=== PATIENT | male | born 1940 | race Caucasian/White ===

== ENCOUNTER 2021-07-07 06:14 | Day surgery (SDC) | payer OTHER, MEDICARE ==
[2021-07-01 15:34] VITALS: BMI 25.1
[2021-07-07] MEDS ORDERED: PROPOFOL 20 ML ONE ×4 (07:19)
[2021-07-07] MEDS ORDERED: SUCCINYLCHOLINE CHLORIDE 200 MG/10 ML SYRINGE ONE (07:20)
[2021-07-07] MEDS ORDERED: MIDAZOLAM HCL 2 MG/2 ML SINGLE DOSE VIAL ONE (07:20)
[2021-07-07] MEDS ORDERED: KETAMINE HCL 200 MG/20 ML VIAL ONE (07:20)
[2021-07-07] MEDS ORDERED: ceFAZolin SODIUM 1 GM VIAL ONE ×2 (07:33→08:53)
[2021-07-07] MEDS ORDERED: TETRACAINE 0.5% OPHTH SOLN 2 ML BOTTLE ONE (07:34)
[2021-07-07] MEDS ORDERED: LIDOCAINE 1%/EPI 1:100000 (20 ML MULTI DOSE VIAL) ONE (07:34)
[2021-07-07] MEDS ORDERED: ERYTHROMYCIN 0.5% OPHTHALMIC OINTMENT 3.5 GM TUBE ONE (07:34)
[2021-07-07] MEDS ORDERED: POVIDONE-IODINE 5% OPHTHALMIC PREP 30 ML SOLUTION ONE (07:34)
[2021-07-07] MEDS ORDERED: DEXAMETHASONE SOD PHOSPHATE 4 MG/1 ML VIAL ONE (08:53)
[2021-07-07] MEDS ORDERED: ONDANSETRON 4 MG/2 ML VIAL ONE (08:53)
[2021-07-07] MEDS ORDERED: KETOROLAC TROMETHAMINE 30 MG/1 ML VIAL ONE (08:53)
[2021-07-07] MEDS ORDERED: ACETAMINOPHEN 325 MG TABLET (FP) PO PRN (09:13)
[2021-07-07] MEDS ORDERED: oxyCODONE HCL 5 MG TABLET PO PRN ×2 (09:13)
[2021-07-07] MEDS ORDERED: PROMETHAZINE HCL 25 MG/1 ML VIAL IVPUSH PRN (09:13)
[2021-07-07] MEDS ORDERED: ONDANSETRON 4 MG/2 ML VIAL IVPUSH PRN (09:13)
[2021-07-07 09:51] VITALS: TEMP 98.1
[2021-07-07 10:14] VITALS: BP 132/65; PULSE 67
== END 2021-07-07 10:10 | disposition home or self-care (01) ==
LOC: FASU 06:14
PROVIDERS: ATTEND Ophthalmology
PROC: 08SN0ZZ Reposition Right Upper Eyelid, Open Approach (ICD-10-PCS; 2021-07-07)
PROC: 08SP0ZZ Reposition Left Upper Eyelid, Open Approach (ICD-10-PCS; principal; 2021-07-07 08:08)
DX: H02.423 Myogenic ptosis of bilateral eyelids (principal)
CPT/HCPCS: 94760